=== PATIENT | female | born 1950 | race Asian ===

== ENCOUNTER 2019-03-08 08:48 | Day surgery (SDC) | payer BC ==
[2019-03-08] MEDS ORDERED: LIDOCAINE 4% SOLUTION 50 ML BTL (09:55)
[2019-03-08] MEDS ORDERED: MIDAZOLAM 1 MG/ML 2 ML INJ ×2 (11:21)
[2019-03-08] MEDS ORDERED: FENTAnyl 50 MCG/ML VIAL (11:21)
== END 2019-03-08 12:10 | disposition home or self-care (01) ==
LOC: GIL 08:48
DX: Z12.11 Encounter for screening for malignant neoplasm of colon (principal); K31.9 Disease of stomach and duodenum, unspecified; K64.1 Second degree hemorrhoids; K57.30 Diverticulosis of large intestine without perforation or abscess without bleeding; K20.8 Other esophagitis; K25.7 Chronic gastric ulcer without hemorrhage or perforation; E11.9 Type 2 diabetes mellitus without complications
CPT/HCPCS: 43239; 82962; 88305; 88312